=== PATIENT | female | born 1995 | race Caucasian/White ===

== ENCOUNTER 2018-10-30 16:33 | Emergency (ER) | payer OTHER ==
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
[2018-10-30 17:58] LABS: ABSOLUTE BASOPHILS # (AUTO) 0.1 10^3/uL (0.0-0.2); ABSOLUTE EOSINOPHILS # (AUTO) 0.1 10^3/uL (0.0-0.6); ABSOLUTE LYMPHOCYTES (AUTO) 1.8 10^3/uL (0.5-4.7); ABSOLUTE MONOCYTES (AUTO) 0.5 10^3/uL (0.1-1.4); BASOPHILS % (AUTO) 0.8 % (0-2); EOSINOPHILS % (AUTO) 1.2 % (0-6); HEMATOCRIT 44.1 % (36.0-47.0); HEMOGLOBIN 15.2 g/dL (12.0-15.5); MEAN CORPUSCULAR HEMOGLOBIN 30.3 pg (27.0-33.4); MEAN CORPUSCULAR HGB CONC 34.4 g/dL (32.0-36.0); MEAN CORPUSCULAR VOLUME 88 fl (80-97); MONOCYTES % (AUTO) 5.1 % (3-13); PLATELET COUNT 295 10^3/uL (150-450); RED CELL DISTRIBUTION WIDTH 12.8 % (11.5-14.0); SEGMENTED NEUTROPHILS % (AUTO) 73.9 % (42-78); TOTAL CELLS COUNTED % (AUTO) 100 %; WHITE BLOOD COUNT 9.4 10^3/uL (4.0-10.5)
[2018-10-30 18:17] LABS: ALBUMIN 4.6 g/dL (3.5-5.0); ALKALINE PHOSPHATASE 73 U/L (38-126); ANION GAP 11 (5-19); ASPARTATE AMINO TRANSFERASE 16 U/L (14-36); BILIRUBIN,DIRECT 0.1 mg/dL (0.0-0.4); BILIRUBIN,TOTAL 0.4 mg/dL (0.2-1.3); BLOOD UREA NITROGEN 7 mg/dL (7-20); CALCIUM 9.8 mg/dL (8.4-10.2); CARBON DIOXIDE 25 mmol/L (22-30); CHLORIDE 105 mmol/L (98-107); GLUCOSE 97 mg/dL (75-110); TOTAL PROTEIN 7.5 g/dL (6.3-8.2)
[2018-10-30] MEDS ORDERED: FENTANYL CITRATE INJ/PF 100 MCG/2 ML AMPUL IV ONE (18:48)
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
[2018-10-30 19:51] LABS: APPEARANCE,URINE SLIGHTLY-CLOUDY; BILIRUBIN,URINE NEGATIVE (NEGATIVE); COLOR,URINE YELLOW; GLUCOSE, URINE NEGATIVE (NEGATIVE); KETONES,URINE NEGATIVE (NEGATIVE); LEUKOCYTE ESTERASE,URINE NEGATIVE (NEGATIVE); NITRITE,URINE NEGATIVE (NEGATIVE); PROTEIN,URINE NEGATIVE (NEGATIVE); URINE SPECIFIC GRAVITY 1.019; UROBILINOGEN,URINE NEGATIVE mg/dL (<2.0)
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
[2018-10-30] MEDS ORDERED: HYDROCODONE/ACETAMINOPHEN 5-325 MG (6 TAB/ER DISP) PO PRN (22:52)
[2018-10-30 23:01] VITALS: BP 127/91
== END 2018-10-30 23:03 | disposition home or self-care (01) ==
LOC: ER 16:33
DX: S39.91XA Unspecified injury of abdomen, initial encounter (principal); R10.30 Lower abdominal pain, unspecified; W50.0XXA Accidental hit or strike by another person, initial encounter; K62.5 Hemorrhage of anus and rectum; F17.200 Nicotine dependence, unspecified, uncomplicated; Z88.1 Allergy status to other antibiotic agents; Z88.2 Allergy status to sulfonamides; Z88.7 Allergy status to serum and vaccine; Z88.5 Allergy status to narcotic agent; Z91.040 Latex allergy status
CPT/HCPCS: 99284; 36415; 84703; 85025; 81025; 80053; 81001; 74177; J3010

== ENCOUNTER 2019-01-28 20:58 | Emergency (ER) | payer SELFPAY ==
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
[2019-01-28 22:09] LABS: ABSOLUTE EOSINOPHILS # (AUTO) 0.1 10^3/uL (0.0-0.6); ABSOLUTE LYMPHOCYTES (AUTO) 2.4 10^3/uL (0.5-4.7); ABSOLUTE MONOCYTES (AUTO) 0.7 10^3/uL (0.1-1.4); ABSOLUTE NEUT (AUTO) 4.9 10^3/uL (1.7-8.2); BASOPHILS % (AUTO) 0.2 % (0-2); EOSINOPHILS % (AUTO) 1.4 % (0-6); HEMATOCRIT 39.5 % (36.0-47.0); HEMOGLOBIN 13.8 g/dL (12.0-15.5); LYMPHOCYTES % (AUTO) 29.4 % (13-45); MEAN CORPUSCULAR HEMOGLOBIN 31.4 pg (27.0-33.4); MEAN CORPUSCULAR VOLUME 90 fl (80-97); MONOCYTES % (AUTO) 8.3 % (3-13); PLATELET COUNT 276 10^3/uL (150-450); RED BLOOD COUNT 4.41 10^6/uL (3.72-5.28); RED CELL DISTRIBUTION WIDTH 13.2 % (11.5-14.0); SEGMENTED NEUTROPHILS % (AUTO) 60.7 % (42-78); TOTAL CELLS COUNTED % (AUTO) 100 %
[2019-01-28 22:29] LABS: ALBUMIN 4.5 g/dL (3.5-5.0); ALKALINE PHOSPHATASE 51 U/L (38-126); ANION GAP 10 (5-19); ASPARTATE AMINO TRANSFERASE 15 U/L (14-36); BILIRUBIN,DIRECT 0.2 mg/dL (0.0-0.4); BILIRUBIN,TOTAL 0.3 mg/dL (0.2-1.3); BLOOD UREA NITROGEN 9 mg/dL (7-20); CALCIUM 9.6 mg/dL (8.4-10.2); CARBON DIOXIDE 24 mmol/L (22-30); CHLORIDE 106 mmol/L (98-107); GLUCOSE 89 mg/dL (75-110); POTASSIUM 4.4 mmol/L (3.6-5.0); TOTAL PROTEIN 7.3 g/dL (6.3-8.2)
[2019-01-28 22:54] LABS: APPEARANCE,URINE CLEAR; BILIRUBIN,URINE NEGATIVE (NEGATIVE); COLOR,URINE YELLOW; GLUCOSE, URINE NEGATIVE (NEGATIVE); KETONES,URINE NEGATIVE (NEGATIVE); LEUKOCYTE ESTERASE,URINE NEGATIVE (NEGATIVE); NITRITE,URINE NEGATIVE (NEGATIVE); PROTEIN,URINE NEGATIVE (NEGATIVE); URINE SPECIFIC GRAVITY 1.018
[2019-01-28] MEDS ORDERED: ONDANSETRON 4 MG TAB.RAPDIS PO ONE (23:35)
[2019-01-28] MEDS ORDERED: ACETAMINOPHEN 325 MG TABLET PO ONE (23:35)
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
[2019-01-29 01:13] VITALS: BP 98/78
== END 2019-01-29 01:16 | disposition home or self-care (01) ==
LOC: ER 20:58
DX: O9A.211 Injury, poisoning and certain other consequences of external causes complicating pregnancy, first trimester (principal); S39.91XA Unspecified injury of abdomen, initial encounter; O26.891 Other specified pregnancy related conditions, first trimester; R10.30 Lower abdominal pain, unspecified; R11.0 Nausea; O99.331 Smoking (tobacco) complicating pregnancy, first trimester; Z3A.01 Less than 8 weeks gestation of pregnancy; X58.XXXA Exposure to other specified factors, initial encounter
CPT/HCPCS: 99284; 86900; 86901; 36415; 84702; 85025; 80053; 81001; 76817; S0119

== ENCOUNTER 2019-02-17 17:47 | Emergency (ER) | payer MEDICAID ==
[2019-02-17] MEDS ORDERED: METOCLOPRAMIDE HCL 10 MG TABLET PO ONE (18:18)
[2019-02-17] MEDS ORDERED: NORMAL SALINE 1000 ML 1,000 ML IV ONE (18:18)
--- NOTE | 2019-02-17 18:18 | ER Document Report ---
ED Medical Screen (RME) - General Chief Complaint: Vag Bleeding, +preg <12wks Stated Complaint: VAGINAL BLEEDING,VOMITING Time Seen by Provider: 02/17/19 18:16 TRAVEL OUTSIDE OF THE [place] IN LAST 30 DAYS: No - HPI Notes: 02/17/19 18:17 Patient is a 23-year-old female approximately 8 weeks who presents complaining of vaginal bleeding that began today. She has been having nausea, vomiting, decreased p.o. intake over the past couple days. She is urinating normally otherwise and having normal bowel movements. No fever. I have treated and performed a rapid initial assessment of this patient. A comprehensive ED assessment and evaluation of the patient, analysis of test results and completion of medical decision making process will be conducted by additional ED providers. PHYSICAL EXAMINATION: GENERAL: Well-appearing, well-nourished and in no acute distress. A&Ox4. Answers questions appropriately. - Related Data Allergies/Adverse Reactions: erythromycin base Allergy (Verified 02/17/19 18:10) latex [Latex] Allergy (Verified 02/17/19 18:10) morphine [Morphine] Allergy (Verified 02/17/19 18:10) pertussis vaccine,fluid [Pertussis Vaccine,Fluid] Allergy (Verified 02/17/19 18:10) Sulfa (Sulfonamide Antibiotics) Allergy (Verified 02/17/19 18:10) Past Medical History - Social History Frequency of alcohol use: None Drug Abuse: None GI Medical History: Reports: Hx Gastroesophageal Reflux Disease, Hx Hiatal Rosemarie ia Psychiatric Medical History: Reports: Hx Anxiety, Hx Attention Deficit Hyperactivity Disorder, Hx Depression Past Surgical History: Reports: Hx Abdominal Surgery - laprascopy, Hx Bowel Surgery - colonoscopy, Hx Dilation and Curettage, Hx Gynecologic Surgery - d&c - Immunizations Immunizations up to date: Yes Hx Diphtheria, Pertussis, Tetanus Vaccination: Yes Physical Exam - Vital signs Vitals: Temp Pulse Resp BP Pulse Ox 98.2 F 99 16 132/86 H 100 02/17/19 18:02 02/17/19 18:02 02/17/19 18:02 02/17/19 18:02 02/17/19 18:02 Course - Vital Signs Vital signs: Temp Pulse Resp BP Pulse Ox 98.2 F 99 16 132/86 H 100 02/17/19 18:02 02/17/19 18:02 02/17/19 18:02 02/17/19 18:02 02/17/19 18:02
[2019-02-17 18:47] LABS: ABSOLUTE BASOPHILS # (AUTO) 0.1 10^3/uL (0.0-0.2); ABSOLUTE EOSINOPHILS # (AUTO) 0.1 10^3/uL (0.0-0.6); ABSOLUTE LYMPHOCYTES (AUTO) 1.7 10^3/uL (0.5-4.7); ABSOLUTE MONOCYTES (AUTO) 0.5 10^3/uL (0.1-1.4); ABSOLUTE NEUT (AUTO) 5.4 10^3/uL (1.7-8.2); BASOPHILS % (AUTO) 0.7 % (0-2); HEMATOCRIT 40.6 % (36.0-47.0); HEMOGLOBIN 14.3 g/dL (12.0-15.5); LYMPHOCYTES % (AUTO) 21.8 % (13-45); MEAN CORPUSCULAR HEMOGLOBIN 31.4 pg (27.0-33.4); MEAN CORPUSCULAR HGB CONC 35.1 g/dL (32.0-36.0); MEAN CORPUSCULAR VOLUME 90 fl (80-97); MONOCYTES % (AUTO) 6.6 % (3-13); PLATELET COUNT 275 10^3/uL (150-450); RED BLOOD COUNT 4.53 10^6/uL (3.72-5.28); RED CELL DISTRIBUTION WIDTH 12.9 % (11.5-14.0); SEGMENTED NEUTROPHILS % (AUTO) 69.9 % (42-78); TOTAL CELLS COUNTED % (AUTO) 100 %; WHITE BLOOD COUNT 7.7 10^3/uL (4.0-10.5)
[2019-02-17 18:49] LABS: APPEARANCE,URINE SLIGHTLY-CLOUDY; BILIRUBIN,URINE NEGATIVE (NEGATIVE); COLOR,URINE AMBER; GLUCOSE, URINE NEGATIVE (NEGATIVE); KETONES,URINE NEGATIVE (NEGATIVE); PROTEIN,URINE NEGATIVE (NEGATIVE); URINE SPECIFIC GRAVITY 1.018
[2019-02-17 19:06] LABS: ALBUMIN 4.6 g/dL (3.5-5.0); ALKALINE PHOSPHATASE 57 U/L (38-126); ANION GAP 10 (5-19); ASPARTATE AMINO TRANSFERASE 16 U/L (14-36); BILIRUBIN,DIRECT 0.2 mg/dL (0.0-0.4); BILIRUBIN,TOTAL 0.6 mg/dL (0.2-1.3); BLOOD UREA NITROGEN 8 mg/dL (7-20); CALCIUM 9.6 mg/dL (8.4-10.2); CARBON DIOXIDE 24 mmol/L (22-30); CHLORIDE 103 mmol/L (98-107); GLUCOSE 92 mg/dL (75-110); POTASSIUM 4.1 mmol/L (3.6-5.0); TOTAL PROTEIN 7.6 g/dL (6.3-8.2)
--- NOTE | 2019-02-17 19:18 | RADIOLOGY REPORT (SQ) ---
EXAM DESCRIPTION: U/S OB TRANSVAG W/DOPPLER COMPLETED DATE/TIME: 02/17/2019 6:55 pm REASON FOR STUDY: bleeding/ COMPARISON: None. TECHNIQUE: Transvaginal static and realtime grayscale images acquired of the pelvis. Additional colton cted spectral and color Doppler images recorded. All images stored on PACs. bHCG: Not available. CLINICAL DATES: LMP 12/19/2018. 8 weeks 4 days LIMITATIONS: None. FINDINGS: FETUS: Single Living intrauterine . ULTRASOUND EGA: 8 weeks 2 days ULTRASOUND RICHARD: 09/27/2019 EFW: Not applicable less than 20 weeks. CRL: 1.8 cm. FHR: 169 beats per minute. SURVEY: Too early to assess. AMNIOTIC FLUID: Adequate amount. PLACENTA: Not yet developed due to early gestation. SUBCHORIONIC BLEED: Yes SIZE OF BLEED: 2 x 1.4 x 1.1 cm UTERUS: No masses. No anomalies. CERVICAL LENGTH: 2.5 cm Closed. RIGHT ADNEXA: Normal ovary with normal vascular flow. 3.4 x 3.7 x 2.2 cm No adnexal free fluid. No adnexal masses. LEFT ADNEXA: Ovary not seen. No adnexal free fluid. No adnexal masses. FREE FLUID: None. OTHER: No other significant finding. IMPRESSION: LIVING INTRAUTERINE . EGA 8 weeks 2 days. Trimester of : First trimester - 0 to 13 weeks. TECHNICAL DOCUMENTATION: JOB ID: [id number] [employer]- All Rights Reserved rev Reading location - IP/workstation name: [email or web address]
--- NOTE | 2019-02-17 21:00 | ER Document Report ---
ED GI/ - General Chief Complaint: Vag Bleeding, +preg <12wks Stated Complaint: VAGINAL BLEEDING,VOMITING Time Seen by Provider: 02/17/19 18:16 Notes: Patient is a 23-year-old female that comes emergency department for chief complaint of vaginal bleeding that started tonight. She is at about 8 weeks gestation. She denies trauma, fever, vaginal discharge, dysuria. She states she has a lot of nausea and has been vomiting at home, she vomited 4 times today. She has had previous molar pregnancies but she did have a confirmed intrauterine recently. She was given nausea medication in triage, states her nausea is resolved and she feels very hungry, asking to eat. TRAVEL OUTSIDE OF THE [place] IN LAST 30 DAYS: No - Related Data Allergies/Adverse Reactions: erythromycin base Allergy (Verified 02/17/19 18:10) latex [Latex] Allergy (Verified 02/17/19 18:10) morphine [Morphine] Allergy (Verified 02/17/19 18:10) pertussis vaccine,fluid [Pertussis Vaccine,Fluid] Allergy (Verified 02/17/19 18:10) Sulfa (Sulfonamide Antibiotics) Allergy (Verified 02/17/19 18:10) Past Medical History - General Information source: Patient Last Menstrual Period: 12/19/18 - Social History Smoking Status: Never Smoker Frequency of alcohol use: None Drug Abuse: None Lives with: Family Family History: Reviewed & Not Pertinent Patient has suicidal ideation: No Patient has homicidal ideation: No GI Medical History: Reports: Hx Gastroesophageal Reflux Disease, Hx Hiatal Hernia Psychiatric Medical History: Reports: Hx Anxiety, Hx Attention Deficit Hyperactivity Disorder, Hx Depression Past Surgical History: Reports: Hx Abdominal Surgery - laprascopy, Hx Bowel Surgery - colonoscopy, Hx Dilation and Curettage, Hx Gynecologic Surgery - d&c - Immunizations Immunizations up to date: Yes Hx Diphtheria, Pertussis, Tetanus Vaccination: Yes Review of Systems - Review of Systems Constitutional: No symptoms reported EENT: No symptoms reported Cardiovascular: No symptoms reported Respiratory: No symptoms reported Gastrointestinal: See HPI Genitourinary: No symptoms reported Female Genitourinary: See HPI Musculoskeletal: No symptoms reported Skin: No symptoms reported Hematologic/Lymphatic: No symptoms reported Neurological/Psychological: No symptoms reported Physical Exam - Vital signs Vitals: Temp Pulse Resp BP Pulse Ox 98.2 F 99 16 132/86 H 100 02/17/19 18:02 02/17/19 18:02 02/17/19 18:02 02/17/19 18:02 02/17/19 18:02 - Notes Notes: GENERAL: Alert, interacts well. No acute distress. HEAD: Normocephalic, atraumatic. EYES: Pupils equal, round, and reactive to light. Extraocular movements intact. ENT: Oral mucosa moist, tongue midline. Oropharynx unremarkable. Airway patent. LUNGS: Clear to auscultation bilaterally, no wheezes, rales, or rhonchi. No respiratory distress. HEART: Regular rate and rhythm. No murmur ABDOMEN: Soft, non-tender. Non-distended. Bowel sounds present in all 4 quadrants. GENITOURINARY: Deferred EXTREMITIES: Moves all 4 extremities spontaneously. No edema, normal radial and dorsalis pedis pulses bilaterally. No cyanosis. BACK: no cervical, thoracic, lumbar midline tenderness. No saddle anesthesia, normal distal neurovascular exam. Moves all extremities in full range of motion. NEUROLOGICAL: Alert and oriented x3. Normal speech. Cranial nerves II through XII grossly intact. PSYCH: Normal affect, normal mood. SKIN: Warm, dry, normal turgor. No rashes or lesions noted. Course - Re-evaluation Re-evalutation: Patient smiling, alert, well-appearing. Unremarkable vital signs. I just saw this patient, RhoGam is not indicated with A positive blood type. CBC unremarkable. hormone appropriately elevated. Ultrasound showing living intrauterine with small subchorionic hemorrhage which I suspect is the cause of patient's symptoms. I discussed this at length. Provided with nausea medication, report, instructions, follow-up, return precautions. Patient states appreciation and agreement, asymptomatic at time of discharge. - Vital Signs Vital signs: Temp Pulse Resp BP Pulse Ox 98.1 F 67 16 112/66 100 02/17/19 22:36 02/17/19 22:36 02/17/19 22:36 02/17/19 22:36 02/17/19 22:36 - Laboratory Result Diagrams: 02/17/19 18:15 02/17/19 18:15 Laboratory results interpreted by me: 02/17/19 02/17/19 18:15 18:17 Beta HCG, Quant 468228.00 H Urine Blood MODERATE H Urine Urobilinogen 4.0 H Discharge - Discharge Clinical Impression: Nausea and vomiting during , Vaginal bleeding affecting early Condition: Stable Disposition: HOME, SELF-CARE Additional Instructions: Your work-up indicates a living in the uterus at 8 weeks and 2 days, there is also a small subchorionic bleed as we discussed. Please perform pelvic rest, avoid lifting, jumping, running, sexual intercourse, or any significant physical activity until cleared by [facility]. Follow-up closely with [facility] for additional management. Take nausea medication if needed. Return for any concerning symptoms including severe pain, heavy bleeding, dizziness, passing out, fever, or any other concerning symptoms. Prescriptions: Metoclopramide HCl [Reglan] 5 mg PO ASDIR PRN #30 tablet PRN Reason:
[2019-02-17 22:40] VITALS: BP 114/84
== END 2019-02-17 22:40 | disposition home or self-care (01) ==
LOC: ER 17:47
DX: O20.8 Other hemorrhage in early pregnancy (principal); O21.9 Vomiting of pregnancy, unspecified; Z3A.08 8 weeks gestation of pregnancy; Z88.1 Allergy status to other antibiotic agents; Z88.6 Allergy status to analgesic agent; Z88.5 Allergy status to narcotic agent; Z88.7 Allergy status to serum and vaccine; Z88.2 Allergy status to sulfonamides; Z91.040 Latex allergy status
CPT/HCPCS: 99284; 96360; 36415; 84702; 83690; 85025; 80053; 81001; 76817; 93976; J3490; J7030

== ENCOUNTER 2019-03-15 15:11 | Emergency (ER) | payer MEDICAID ==
--- NOTE | 2019-03-15 16:02 | ER Document Report ---
ED Medical Screen (RME) - General Chief Complaint: Vaginal Bleeding Stated Complaint: VAGINAL BLEEDING Time Seen by Provider: 03/15/19 15:59 Mode of Arrival: Ambulatory Information source: Patient Notes: 23-year-old female presented to ED for complaint of vaginal bleeding during . She states she is about 12 weeks . She is 3 para 1. Her blood type is a positive according to the hospital records. She states she has complete continued to bleed so she has come to the hospital. She states she does have pelvic pain at this time. Patient is alert oriented respirations regular nonlabored speaking in full sentences. I have greeted and performed a rapid initial assessment of this patient. A comprehensive ED assessment and evaluation of the patient, analysis of test results and completion of medical decision making process will be conducted by an additional ED providers. TRAVEL OUTSIDE OF THE [place] IN LAST 30 DAYS: No - Related Data Allergies/Adverse Reactions: erythromycin base Allergy (Verified 03/15/19 16:01) latex [Latex] Allergy (Verified 03/15/19 16:01) morphine [Morphine] Allergy (Verified 03/15/19 16:01) pertussis vaccine,fluid [Pertussis Vaccine,Fluid] Allergy (Verified 03/15/19 16:01) Sulfa (Sulfonamide Antibiotics) Allergy (Verified 03/15/19 16:01) Past Medical History GI Medical History: Reports: Hx Gastroesophageal Reflux Disease, Hx Hiatal Hernia Psychiatric Medical History: Reports: Hx Anxiety, Hx Attention Deficit Hyperactivity Disorder, Hx Depression Past Surgical History: Reports: Hx Abdominal Surgery - laprascopy, Hx Bowel Surgery - colonoscopy, Hx Dilation and Curettage, Hx Gynecologic Surgery - d&c - Immunizations Immunizations up to date: Yes Hx Diphtheria, Pertussis, Tetanus Vaccination: Yes Physical Exam - Vital signs Vitals: Temp Pulse Resp BP Pulse Ox 98.8 F 94 15 137/71 H 98 03/15/19 15:53 03/15/19 15:53 03/15/19 15:53 03/15/19 15:53 03/15/19 15:53 Course - Vital Signs Vital signs: Temp Pulse Resp BP Pulse Ox 98.8 F 94 15 137/71 H 98 03/15/19 15:53 03/15/19 15:53 03/15/19 15:53 03/15/19 15:53 03/15/19 15:53
[2019-03-15] MEDS ORDERED: ACETAMINOPHEN 325 MG TABLET PO ONE (16:04)
[2019-03-15 17:34] LABS: ABSOLUTE EOSINOPHILS # (AUTO) 0.1 10^3/uL (0.0-0.6); ABSOLUTE LYMPHOCYTES (AUTO) 1.2 10^3/uL (0.5-4.7); ABSOLUTE MONOCYTES (AUTO) 0.4 10^3/uL (0.1-1.4); BASOPHILS % (AUTO) 0.2 % (0-2); EOSINOPHILS % (AUTO) 0.9 % (0-6); HEMATOCRIT 38.4 % (36.0-47.0); HEMOGLOBIN 13.5 g/dL (12.0-15.5); LYMPHOCYTES % (AUTO) 15.8 % (13-45); MEAN CORPUSCULAR HEMOGLOBIN 31.5 pg (27.0-33.4); MEAN CORPUSCULAR HGB CONC 35.1 g/dL (32.0-36.0); MEAN CORPUSCULAR VOLUME 90 fl (80-97); MONOCYTES % (AUTO) 4.8 % (3-13); PLATELET COUNT 226 10^3/uL (150-450); RED BLOOD COUNT 4.28 10^6/uL (3.72-5.28); RED CELL DISTRIBUTION WIDTH 12.7 % (11.5-14.0); SEGMENTED NEUTROPHILS % (AUTO) 78.3 % (42-78); TOTAL CELLS COUNTED % (AUTO) 100 %; WHITE BLOOD COUNT 7.7 10^3/uL (4.0-10.5)
[2019-03-15 17:58] LABS: ALBUMIN 3.9 g/dL (3.5-5.0); ALKALINE PHOSPHATASE 46 U/L (38-126); ANION GAP 8 (5-19); ASPARTATE AMINO TRANSFERASE 11 U/L (14-36); BILIRUBIN,TOTAL 0.3 mg/dL (0.2-1.3); BLOOD UREA NITROGEN 7 mg/dL (7-20); CALCIUM 9.4 mg/dL (8.4-10.2); CARBON DIOXIDE 25 mmol/L (22-30); CHLORIDE 105 mmol/L (98-107); GLUCOSE 92 mg/dL (75-110); POTASSIUM 4.5 mmol/L (3.6-5.0); TOTAL PROTEIN 6.6 g/dL (6.3-8.2)
[2019-03-15] MEDS ORDERED: NORMAL SALINE 1000 ML 1,000 ML IV ONE (19:35)
[2019-03-15] MEDS ORDERED: PROMETHAZINE HCL INJ 25 MG/1 ML VIAL IV ONE (19:36)
--- NOTE | 2019-03-15 21:01 | RADIOLOGY REPORT (SQ) ---
EXAM DESCRIPTION: US LESS THAN 14 WEEKS COMPLETED DATE/TME: 03/15/2019 16:03 CLINICAL HISTORY: 23 years Female 12 weeks vaginal bleeding COMPARISON: None. TECHNIQUE: Transabdominal duplex imaging performed to evaluate the pelvis. FINDINGS: Uterus measures 10 x 8 cm. There is an intrauterine gestational sac. Right ovary measures 2.3 x 2.5 x 2.5 cm with normal flow. heart rate 153 bpm. Cervix measures 3 cm. Left ovary is not seen. No free fluid. Subjectively normal ROBERTO. Estimated gestational age 12 weeks two days. IMPRESSION: Living IUP corresponding to 12 weeks two days
[2019-03-15] MEDS ORDERED: DEXTROSE 5%-1/2 NORMAL SALINE 500 ML IV ONE (21:44)
[2019-03-15 22:13] LABS: APPEARANCE,URINE CLEAR; BILIRUBIN,URINE NEGATIVE (NEGATIVE); COLOR,URINE COLORLESS; GLUCOSE, URINE NEGATIVE (NEGATIVE); KETONES,URINE NEGATIVE (NEGATIVE); LEUKOCYTE ESTERASE,URINE NEGATIVE (NEGATIVE); NITRITE,URINE NEGATIVE (NEGATIVE); PROTEIN,URINE NEGATIVE (NEGATIVE); URINE SPECIFIC GRAVITY 1.003; UROBILINOGEN,URINE NEGATIVE mg/dL (<2.0)
--- NOTE | 2019-03-15 22:41 | ER Document Report ---
ED GI/ - General Chief Complaint: Vaginal Bleeding Stated Complaint: VAGINAL BLEEDING Time Seen by Provider: 03/15/19 15:59 Mode of Arrival: Ambulatory Notes: Patient is a 23-year-old female about 12 weeks who comes in today with some cramping and spotting. Patient states last intercourse was 3 to 4 days a go. Denies any vaginal discharge. No dysuria. No fever. Patient has been nauseated during this and apparently has been under a lot of stress this week. She is been trying to eat but states that her fluid intake was probably lower than usual. No other abdominal pain or symptoms. TRAVEL OUTSIDE OF THE [place] IN LAST 30 DAYS: No - HPI Patient complains to provider of: Onset: Other Timing/Duration: Gradual Quality of pain: Cramping, Dull Severity at maximum: Mild Severity in ED: Mild Location: Pelvis Vaginal bleeding (Compared to normal period): Spotting heart tones (bpm): 136 Associated symptoms: Nausea - Related Data Allergies/Adverse Reactions: erythromycin base Allergy (Verified 03/15/19 16:01) latex [Latex] Allergy (Verified 03/15/19 16:01) morphine [Morphine] Allergy (Verified 03/15/19 16:01) pertussis vaccine,fluid [Pertussis Vaccine,Fluid] Allergy (Verified 03/15/19 16:01) Sulfa (Sulfonamide Antibiotics) Allergy (Verified 03/15/19 16:01) Past Medical History - General Information source: Patient Last Menstrual Period: 12/19/2018 - Social History Smoking Status: Current Every Day Smoker Frequency of alcohol use: None Drug Abuse: None Family History: Reviewed & Not Pertinent Patient has suicidal ideation: No Patient has homicidal ideation: No - Medical History Medical History: Negative GI Medical History: Reports: Hx Gastroesophageal Reflux Disease, Hx Hiatal Hernia Psychiatric Medical History: Reports: Hx Anxiety, Hx Attention Deficit Hyperactivity Disorder, Hx Depression Past Surgical History: Reports: Hx Abdominal Surgery - laprascopy, Hx Bowel Surgery - colonoscopy, Hx Dilation and Curettage, Hx Gynecologic Surgery - d&c - Immunizations Immunizations up to date: Yes Hx Diphtheria, Pertussis, Tetanus Vaccination: Yes Review of Systems - Review of Systems Constitutional: No symptoms reported EENT: No symptoms reported Cardiovascular: No symptoms reported Respiratory: No symptoms reported Gastrointestinal: No symptoms reported Genitourinary: No symptoms reported Female Genitourinary: See HPI Musculoskeletal: No symptoms reported Skin: No symptoms reported Hematologic/Lymphatic: No symptoms reported Neurological/Psychological: No symptoms reported Physical Exam - Vital signs Vitals: Temp Pulse Resp BP Pulse Ox 98.8 F 94 15 137/71 H 98 03/15/19 15:53 03/15/19 15:53 03/15/19 15:53 03/15/19 15:53 03/15/19 15:53 Interpretation: Normal - General General appearance: Appears well, Alert - HEENT Head: Normocephalic, Atraumatic Eyes: Normal Pupils: PERRL Mucous membranes: Dry - Respiratory Respiratory status: No respiratory distress Chest status: Nontender Breath sounds: Normal Chest palpation: Normal - Cardiovascular Rhythm: Regular Heart sounds: Normal auscultation Murmur: No - Abdominal Inspection: Normal Distension: No distension Bowel sounds: Normal Tenderness: Tender - Mild suprapubic Organomegaly: No organomegaly - Back Back: Normal, Nontender - Extremities General upper extremity: Normal inspection, Nontender, Normal color, Normal ROM, Normal temperature General lower extremity: Normal inspection, Nontender, Normal color, Normal ROM, Normal temperature, Normal weight bearing. No: Katrin's sign - Neurological Neuro grossly intact: Yes Cognition: Normal Orientation: AAOx4 Salazar Coma Scale Eye Opening: Spontaneous [place]azar Coma Scale Verbal: Oriented [place] Coma Scale Motor: Obeys Commands Salazar Coma Scale Total: 15 Speech: Normal Motor strength normal: LUE, RUE, LLE, RLE Sensory: Normal - Psychological Associated symptoms: Normal affect, Normal mood - Skin Skin Temperature: Warm Skin Moisture: Dry Skin Color: Normal Course - Re-evaluation Re-evalutation: 03/15/19 23:33 Patient is feeling better after fluids and Phenergan. Ultrasound with intrauterine at 12 weeks. heartbeat 153. Symptoms are resolving now that patient is received fluids. Likely as a result of some dehydration. Will refill of Phenergan. Patient is encouraged to follow-up with her STAFFING ANALYST this week. Return if any worsening or concerning symptoms. Understands agrees with plan. Stable for discharge. Of note, blood type is A positive. - Vital Signs Vital signs: Temp Pulse Resp BP Pulse Ox 98.4 F 80 20 112/62 99 03/15/19 23:19 03/15/19 23:19 03/15/19 23:19 03/15/19 23:19 03/15/19 23:19 - Laboratory Result Diagrams: 03/15/19 16:50 03/15/19 16:50 Laboratory results interpreted by me: 03/15/19 03/15/19 16:50 16:50 Seg Neutrophils % 78.3 H AST 11 L Beta HCG, Quant [id number] H - Diagnostic Test Radiology reviewed: Reports reviewed Discharge - Discharge Clinical Impression: Pelvic cramping in antepartum period, Nausea and vomiting during Condition: Stable Disposition: HOME, SELF-CARE Instructions: Bleeding During Early ([facility]), Pelvic Pain in ([facility]) Prescriptions: Promethazine HCl [Phenergan 25 mg Tablet] 1 tab PO Q6H PRN #30 tablet PRN Reason:
[2019-03-15 23:21] VITALS: BP 112/62
== END 2019-03-15 23:41 | disposition home or self-care (01) ==
LOC: ER 15:11
DX: O26.891 Other specified pregnancy related conditions, first trimester (principal); R10.2 Pelvic and perineal pain; O21.9 Vomiting of pregnancy, unspecified; O26.851 Spotting complicating pregnancy, first trimester; O99.331 Smoking (tobacco) complicating pregnancy, first trimester; F17.200 Nicotine dependence, unspecified, uncomplicated; Z3A.12 12 weeks gestation of pregnancy; Z88.1 Allergy status to other antibiotic agents; Z91.040 Latex allergy status; Z88.6 Allergy status to analgesic agent; Z88.5 Allergy status to narcotic agent; Z88.7 Allergy status to serum and vaccine; Z88.2 Allergy status to sulfonamides
CPT/HCPCS: 36415; 82962; 84702; 85025; 80053; 81001; 76801; J3490; J2550; J7030; 96361; 96365; 96375; 99284

== ENCOUNTER 2019-04-03 12:15 | Emergency (ER) | payer MEDICAID ==
[2019-04-03] MEDS ORDERED: METOCLOPRAMIDE HCL INJ/PF 10 MG/2 ML SDV IV ONE ×2 (13:13→17:30)
[2019-04-03] MEDS ORDERED: ACETAMINOPHEN 325 MG TABLET PO ONE ×2 (13:14→17:30)
[2019-04-03] MEDS ORDERED: NORMAL SALINE 1000 ML 1,000 ML IV ONE ×2 (13:14→17:30)
--- NOTE | 2019-04-03 13:16 | ER Document Report ---
ED Medical Screen (RME) - General Chief Complaint: Back Pain Stated Complaint: LOWER BACK PAIN Time Seen by Provider: 04/03/19 13:09 Notes: Patient is a G3, P1 23-year-old female who presents emergency department with a chief complaint of back pain. Patient states that she has some nausea and vomiting. She was taking Diclegis at home, but has not kept anything down for the past 2 days. States that she has some abdominal cramping. Patient is currently 15 weeks . Exam: Tenderness to mid lower abdomen. Tenderness to bilateral back. I have greeted and performed a rapid initial assessment of this patient. A comprehensive ED assessment and evaluation of the patient, analysis of test results and completion of medical decision making process will be conducted by an additional ED providers. TRAVEL OUTSIDE OF THE [place] IN LAST 30 DAYS: No - Related Data Allergies/Adverse Reactions: erythromycin base Allergy (Verified 04/03/19 13:06) latex [Latex] Allergy (Verified 04/03/19 13:06) morphine [Morphine] Allergy (Verified 04/03/19 13:06) pertussis vaccine,fluid [Pertussis Vaccine,Fluid] Allergy (Verified 04/03/19 13:06) Sulfa (Sulfonamide Antibiotics) Allergy (Verified 04/03/19 13:06) Home Medications: prentals Past Medical History - Social History Frequency of alcohol use: None Drug Abuse: None GI Medical History: Reports: Hx Gastroesophageal Reflux Disease, Hx Hiatal Hernia Psychiatric Medical History: Reports: Hx Anxiety, Hx Attention Deficit Hyperactivity Disorder, Hx Depression Past Surgical History: Reports: Hx Abdominal Surgery - laprascopy, Hx Bowel Surgery - colonoscopy, Hx Dilation and Curettage, Hx Gynecologic Surgery - d&c - Immunizations Immunizations up to date: Yes Hx Diphtheria, Pertussis, Tetanus Vaccination: Yes Physical Exam - Vital signs Vitals: Temp Pulse Resp BP Pulse Ox 98.5 F 112 H 21 H 129/71 H 98 04/03/19 12:59 04/03/19 12:59 04/03/19 12:59 04/03/19 12:59 04/03/19 12:59 Course - Vital Signs Vital signs: Temp Pulse Resp BP Pulse Ox 98.5 F 112 H 21 H 129/71 H 98 04/03/19 12:59 04/03/19 12:59 04/03/19 12:59 04/03/19 12:59 04/03/19 12:59
[2019-04-03 13:36] LABS: ABSOLUTE LYMPHOCYTES (AUTO) 0.6 10^3/uL (0.5-4.7); ABSOLUTE MONOCYTES (AUTO) 0.4 10^3/uL (0.1-1.4); ABSOLUTE NEUT (AUTO) 3.1 10^3/uL (1.7-8.2); BASOPHILS % (AUTO) 0.2 % (0-2); HEMATOCRIT 38.1 % (36.0-47.0); HEMOGLOBIN 13.6 g/dL (12.0-15.5); LYMPHOCYTES % (AUTO) 15.5 % (13-45); MEAN CORPUSCULAR HEMOGLOBIN 31.8 pg (27.0-33.4); MEAN CORPUSCULAR HGB CONC 35.8 g/dL (32.0-36.0); MEAN CORPUSCULAR VOLUME 89 fl (80-97); MONOCYTES % (AUTO) 9.6 % (3-13); PLATELET COUNT 203 10^3/uL (150-450); RED BLOOD COUNT 4.29 10^6/uL (3.72-5.28); RED CELL DISTRIBUTION WIDTH 12.7 % (11.5-14.0); SEGMENTED NEUTROPHILS % (AUTO) 74.7 % (42-78); TOTAL CELLS COUNTED % (AUTO) 100 %; WHITE BLOOD COUNT 4.1 10^3/uL (4.0-10.5)
[2019-04-03 13:54] LABS: ALBUMIN 4.3 g/dL (3.5-5.0); ALKALINE PHOSPHATASE 56 U/L (38-126); ANION GAP 10 (5-19); ASPARTATE AMINO TRANSFERASE 20 U/L (14-36); BILIRUBIN,TOTAL 0.5 mg/dL (0.2-1.3); BLOOD UREA NITROGEN 8 mg/dL (7-20); CALCIUM 9.4 mg/dL (8.4-10.2); CARBON DIOXIDE 24 mmol/L (22-30); CHLORIDE 100 mmol/L (98-107); GLUCOSE 90 mg/dL (75-110); POTASSIUM 4.4 mmol/L (3.6-5.0); TOTAL PROTEIN 7.3 g/dL (6.3-8.2)
--- NOTE | 2019-04-03 15:01 | RADIOLOGY REPORT (SQ) ---
EXAM DESCRIPTION: U/S OB LIMITED COMPLETED DATE/TIME: 04/03/2019 2:49 pm REASON FOR STUDY: back pain; pelvic pain COMPARISON: Ultrasound from 03/15/2019. TECHNIQUE: Limited transabdominal grayscale ultrasound for evaluation of specific requested obstetri porfirio parameters. LIMITATIONS: None. FINDINGS: CERVICAL LENGTH: 3.4 cm. Closed. LVP: 5.4 x 2.9 cm. FHR: 152 beats per minute. PRESENTATION: Variable. PLACENTA: Fundal. ANATOMY: Not assessed. OTHER: EGA 15 weeks 1 day. IMPRESSION: LIMITED OBSTETRICAL ULTRASOUND WITH MEASURED PARAMETERS DELINEATED ABOVE. Trimester of : Second trimester - 13 weeks 1 day to 27 weeks 6 days. TECHNICAL DOCUMENTATION: JOB ID: [id number] [email or web address]- All Rights Reserved Reading location - IP/workstation name: [email or web address]
--- NOTE | 2019-04-03 17:57 | ER Document Report ---
ED General - General Chief Complaint: Back Pain Stated Complaint: LOWER BACK PAIN Time Seen by Provider: 04/03/19 13:09 Mode of Arrival: Ambulatory Information source: Patient Notes: 23-year-old female G3, P1 approximately 15 weeks presents emergency department with complaints of lower back pain and bilateral hip pain since yesterday. She also reports she has been having a low-grade fever of 101 with vomiting for the past 2 days. Reports she has been unable to hold any fluids do wn. She did receive her flu vaccine this year. Denies pain with void denies vaginal discharge denies vaginal bleeding. Reports of occasional sharp pains in her abdomen. No other family members ill. Patient is a homemaker. TRAVEL OUTSIDE OF THE [place] IN LAST 30 DAYS: No - HPI Onset: Yesterday Quality of pain: Achy Associated symptoms: Nausea, Vomiting Exacerbated by: Denies Relieved by: Denies Similar symptoms previously: Yes Recently seen / treated by doctor: Yes - Related Data Allergies/Adverse Reactions: erythromycin base Allergy (Verified 04/03/19 13:06) latex [Latex] Allergy (Verified 04/03/19 13:06) morphine [Morphine] Allergy (Verified 04/03/19 13:06) pertussis vaccine,fluid [Pertussis Vaccine,Fluid] Allergy (Verified 04/03/19 13:06) Sulfa (Sulfonamide Antibiotics) Allergy (Verified 04/03/19 13:06) Home Medications: prentals Past Medical History - General Information source: Patient Last Menstrual Period: 12/19/18 - Social History Smoking Status: Unknown if Ever Smoked Frequency of alcohol use: None Drug Abuse: None Occupation: homemaker Lives with: Family Family History: Reviewed & Not Pertinent Patient has suicidal ideation: No Patient has homicidal ideation: No Endocrine Medical History: Reports: Hx Hyperthyroidism - Daisy's Renal/ Medical History: Reports: Other - Endometriosis GI Medical History: Reports: Hx Gastroesophageal Reflux Disease, Hx Hiatal Hernia Musculoskeletal Medical History: Reports Other - Scoliosis Psychiatric Medical History: Reports: Hx Anxiety, Hx Attention Deficit Hyperactivity Disorder, Hx Depression Past Surgical History: Reports: Hx Abdominal Surgery - laprascopy, Hx Bowel Surgery - colonoscopy, Hx Dilation and Curettage, Hx Gynecologic Surgery - d&c - Immunizations Immunizations up to date: Yes Hx Diphtheria, Pertussis, Tetanus Vaccination: Yes Review of Systems - Review of Systems Notes: Review HPI for review of systems., All other systems negative Physical Exam - Vital signs Vitals: Temp Pulse Resp BP Pulse Ox 98.5 F 112 H 21 H 129/71 H 98 04/03/19 12:59 04/03/19 12:59 04/03/19 12:59 04/03/19 12:59 04/03/19 12:59 - Notes Notes: PHYSICAL EXAMINATION: GENERAL: Well-appearing and in no acute distress HEAD: Atraumatic, normocephalic. EYES: Pupils equal round and reactive to light, extraocular movements intact, sclera anicteric, conjunctiva are normal. ENT: nares patent, oropharynx clear without exudates. Moist mucous membranes. NECK: Normal range of motion, supple without lymphadenopathy LUNGS: CTAB and equal. No wheezes rales or rhonchi. HEART: Regular rate and rhythm without murmurs ABDOMEN: Soft, no tenderness. No guarding, no rebound BACK: C/O generalized low back pain, no obvious deformity good distal movement and sensation EXTREMITIES: Normal range of motion, no pitting edema. No cyanosis. NEUROLOGICAL: Cranial nerves grossly intact. Normal sensory/motor exams. PSYCH: Normal mood, normal affect. SKIN: Warm, Dry, normal turgor, no rashes or lesions noted Course - Re-evaluation Re-evalutation: 04/03/19 18:01 Obstetrics Ultrasound 04/03/19 13:17 IMPRESSION: LIMITED OBSTETRICAL ULTRASOUND WITH MEASURED PARAMETERS DELINEATED ABOVE. Trimester of : Second trimester - 13 weeks 1 day to 27 weeks 6 days. 04/03/19 19:43 Patient reports she is feeling much better. No further vomiting. Labs unremarkable. UA with specific gravity 1.031+ ketones receiving IV fluids ultrasound 15 w1d. will do p.o. challenge plan on discharge. 20:06 Patient reports she feels great. Drinking p.o. fluids discharged home Laboratory 04/03/19 04/03/19 04/03/19 13:22 13:22 17:30 WBC 4.1 RBC 4.29 Hgb 13.6 Hct 38.1 MCV 89 MCH 31.8 MCHC 35.8 RDW 12.7 Plt Count 203 Lymph % (Auto) 15.5 [place] % (Auto) 9.6 Eos % (Auto) 0.0 Baso % (Auto) 0.2 Absolute Neuts (auto) 3.1 Absolute Lymphs (auto) 0.6 Absolute Monos (auto) 0.4 Absolute Eos (auto) 0.0 Absolute Basos (auto) 0.0 Seg Neutrophils % 74.7 Sodium 133.7 L Potassium 4.4 Chloride 100 Carbon Dioxide 24 Anion Gap 10 BUN 8 Creatinine 0.64 Est GFR ( Amer) > 60 Est GFR (MDRD) Non-Af > 60 Glucose 90 Calcium 9.4 Total Bilirubin 0.5 Direct Bilirubin 0.0 Neonat Total Bilirubin Not Reportable Neonat Direct Bilirubin Not Reportable Neonat Indirect Bili Not Reportable AST 20 ALT 12 Alkaline Phosphatase 56 Total Protein 7.3 Albumin 4.3 Lipase 48.4 Beta HCG, Quant 36712.00 H Total Beta HCG POSITIVE Urine Color QUITA Urine Appearance SLIGHTLY-CLOUDY Urine pH 5.0 Ur Specific [place] 1.031 Urine Protein 30 H Urine Glucose (UA) NEGATIVE Urine Ketones 80 H Urine Blood NEGATIVE Urine Nitrite NEGATIVE Urine Bilirubin NEGATIVE Urine Urobilinogen NEGATIVE Ur Leukocyte Esterase NEGATIVE Urine WBC (Auto) 4 Urine RBC (Auto) 5 Squamous Epi Cells Auto 7 Urine Mucus (Auto) RARE Urine Ascorbic Acid 40 H 04/03/19 20:06 - Vital Signs Vital signs: Temp Pulse Resp BP Pulse Ox 98.5 F 112 H 21 H 129/71 H 98 04/03/19 12:59 04/03/19 12:59 04/03/19 12:59 04/03/19 12:59 04/03/19 12:59 - Laboratory Result Diagrams: 04/03/19 13:22 04/03/19 13:22 Laboratory results interpreted by me: 04/03/19 04/03/19 13:22 17:30 Sodium 133.7 L Beta HCG, Quant 53152.00 H Urine Protein 30 H Urine Ketones 80 H Urine Ascorbic Acid 40 H - Diagnostic Test Radiology reviewed: Image reviewed, Reports reviewed Discharge - Discharge Clinical Impression: Dehydration Back pain Qualifiers: Back pain location: low back pain Chronicity: unspecified Back pain laterality: bilateral Sciatica presence: without sciatica Qualified Code(s): M54.5 - Low back pain Nausea & vomiting Qualifiers: Vomiting type: unspecified Vomiting Intractability: non-intractable Qualified Code(s): R11.2 - Nausea with vomiting, unspecified Qualifiers: Weeks of gestation: 15 weeks Qualified Code(s): Z3A.15 - 15 weeks gestation of Condition: Stable Disposition: HOME, SELF-CARE Instructions: Antinausea Medication ([facility]), Dehydration ([facility]), Intravenous (IV) Fluids ([facility]), Low Back Pain ([facility]), Reglan ([facility]), Vomiting ([facility]) Additional Instructions: *You have been evaluated for back pain hip pain nausea vomiting, dehydration, pr egnancy *Take medication as prescribed for nausea and vomiting *Take Tylenol as indicated for back pain *Push fluids to stay well-hydrated *Follow up with your ZONE MANAGER within 1 week for recheck *Return to ED for worsening condition, changes, needs monitor your blood pressure. Your blood pressure was elevated today. This may be because you were anxious, in pain or because you need medication. It is important to follow up with your primary care provider for full evaluation. Prescriptions: Metoclopramide HCl [Reglan] 10 mg PO Q6H PRN #20 tablet PRN Reason: Forms: Elevated Blood Pressure
[2019-04-03 19:15] LABS: APPEARANCE,URINE SLIGHTLY-CLOUDY; BILIRUBIN,URINE NEGATIVE (NEGATIVE); COLOR,URINE AMBER; GLUCOSE, URINE NEGATIVE (NEGATIVE); KETONES,URINE 80 mg/dL (NEGATIVE); LEUKOCYTE ESTERASE,URINE NEGATIVE (NEGATIVE); NITRITE,URINE NEGATIVE (NEGATIVE); PROTEIN,URINE 30 mg/dL (NEGATIVE); URINE SPECIFIC GRAVITY 1.031; UROBILINOGEN,URINE NEGATIVE mg/dL (<2.0)
[2019-04-03] MEDS ORDERED: RINGERS SOLUTION,LACTATED 1,000 ML IV ONE (19:36)
[2019-04-03 20:33] VITALS: BP 102/67
== END 2019-04-03 20:21 | disposition home or self-care (01) ==
LOC: ER 12:15
DX: O99.89 Other specified diseases and conditions complicating pregnancy, childbirth and the puerperium (principal); M54.5 Low back pain; E86.0 Dehydration; O21.8 Other vomiting complicating pregnancy; Z3A.15 15 weeks gestation of pregnancy; Z88.3 Allergy status to other anti-infective agents; Z91.040 Latex allergy status; Z88.6 Allergy status to analgesic agent; Z88.2 Allergy status to sulfonamides
CPT/HCPCS: 99284; 96361; 96374; 36415; 84702; 83690; 85025; 80053; 81001; 76815; J3490; J2765; J7030

== ENCOUNTER 2019-07-25 12:09 | Outpatient (CLI) | payer MEDICAID ==
[2019-07-25 13:15] LABS: APPEARANCE,URINE CLEAR; BILIRUBIN,URINE NEGATIVE (NEGATIVE); COLOR,URINE YELLOW; GLUCOSE, URINE NEGATIVE (NEGATIVE); KETONES,URINE NEGATIVE (NEGATIVE); LEUKOCYTE ESTERASE,URINE NEGATIVE (NEGATIVE); NITRITE,URINE NEGATIVE (NEGATIVE); PROTEIN,URINE NEGATIVE (NEGATIVE); UROBILINOGEN,URINE NEGATIVE mg/dL (<2.0)
[2019-07-25 13:15] LABS: BACTERIA (WET MOUNT) 3+ BACTERIA SEEN; EPITHELIALS (WET MOUNT) 4+ EPITHELIALS SEEN; T.VAGINALIS (WET MOUNT) NO TRICHOMONAS SEEN; WBCS (WET MOUNT) 2+ WBCS SEEN; YEAST (WET MOUNT) NO YEAST SEEN
[2019-07-25 13:40] LABS: URINE AMPHETAMINES SCREEN NEGATIVE; URINE BARBITURATES SCREEN NEGATIVE; URINE BENZODIAZEPINES SCREEN NEGATIVE; URINE COCAINE SCREEN NEGATIVE; URINE MARIJUANA (THC) SCREEN NEGATIVE; URINE METHADONE SCREEN NEGATIVE; URINE PHENCYCLIDINE SCREEN NEGATIVE
--- NOTE | 2019-07-25 13:56 | RADIOLOGY REPORT (SQ) ---
EXAM DESCRIPTION: U/S OB LIMITED IMAGES COMPLETED DATE/TIME: 07/25/2019 1:30 pm REASON FOR STUDY: cervical length COMPARISON: None. TECHNIQUE: Limited transabdominal grayscale ultrasound for evaluation of specific requested obstetri porfirio parameters. LIMITATIONS: None. FINDINGS: CERVICAL LENGTH: 3.2 cm Closed. ROBERTO: 16.8 cm cm. FHR: 127 beats per minute. PRESENTATION: Cephalic. PLACENTA: Not assessed ANATOMY: Not assessed OTHER: No other significant findings. IMPRESSION: LIMITED OBSTETRICAL ULTRASOUND WITH MEASURED PARAMETERS DELINEATED ABOVE. Trimester of : Third trimester - 28 weeks to delivery. TECHNICAL DOCUMENTATION: JOB ID: [id number] 2010 [employer]- All Rights Reserved Reading location - IP/workstation name: [email or web address]
[2019-07-25 14:43] LABS: CHLAM PCR NOT DETECTED (NOT DETECT)
== END 2019-07-25 14:05 | disposition home or self-care (01) ==
LOC: LC 12:09
PROVIDERS: ATTEND Student in an Organized Health Care Education/Training Program
DX: O47.03 False labor before 37 completed weeks of gestation, third trimester (principal); Z3A.31 31 weeks gestation of pregnancy
CPT/HCPCS: 87210; 81001; 80307; 87491; 87591; 84112; 76815; 59899; Q0114

== ENCOUNTER 2019-08-18 09:58 | Outpatient (CLI) | payer MEDICAID ==
[2019-08-18 10:57] LABS: APPEARANCE,URINE SLIGHTLY-CLOUDY; BILIRUBIN,URINE NEGATIVE (NEGATIVE); COLOR,URINE YELLOW; GLUCOSE, URINE NEGATIVE (NEGATIVE); KETONES,URINE NEGATIVE (NEGATIVE); LEUKOCYTE ESTERASE,URINE SMALL (NEGATIVE); NITRITE,URINE NEGATIVE (NEGATIVE); PROTEIN,URINE NEGATIVE (NEGATIVE); URINE SPECIFIC GRAVITY 1.018; UROBILINOGEN,URINE NEGATIVE mg/dL (<2.0)
--- NOTE | 2019-08-18 11:22 | Non Stress Test Report ---
Non Stress Test Datetime Report Generated by CPN: 08/18/2019 11:22 DEMOGRAPHIC EGA NST: 34.4 INDICATION Indication for Study (NST) Other: IUP at 34.4; Not in labor VITAL SIGNS Temperature - NST: 98.3 Pulse - NST: 96 RESP - NST: 18 NBPSYS NST: 107 NBPDIA NST: 62 MONITORING Monitor Explained: Monitor Explained; Test Explained; Patient Verbalized Understanding Time on Monitor: 08/18/2019 10:20 Time off Monitor: 08/18/2019 10:50 NST Duration: 30 NST INTERVENTIONS NST Interventions: PO Hydration Physician Notified NST: K. Lima, CNM BABY A: [id number] BABY A Movement : Present Contraction Frequency : x1; Irritability FHR Baseline : 140 Accelerations : 15X15 Decelerations : None Variability : Moderate 6-25bpm NST Review: Meets Criteria for Reactive NST NST Review and Verified By : Bello Faulkner RN NST Results: Reactive NST REPORT Report Trigger: Send Report
[2019-08-18 11:32] LABS: URINE AMPHETAMINES SCREEN NEGATIVE; URINE BARBITURATES SCREEN NEGATIVE; URINE BENZODIAZEPINES SCREEN NEGATIVE; URINE COCAINE SCREEN NEGATIVE; URINE METHADONE SCREEN NEGATIVE; URINE PHENCYCLIDINE SCREEN NEGATIVE
[2019-08-18 11:36] LABS: URINE MARIJUANA (THC) SCREEN UNCONFIRMED POSITIVE
== END 2019-08-18 11:12 | disposition home or self-care (01) ==
LOC: LC 09:58
PROVIDERS: ATTEND Obstetrics & Gynecology Gynecology
DX: O47.03 False labor before 37 completed weeks of gestation, third trimester (principal); Z3A.34 34 weeks gestation of pregnancy
CPT/HCPCS: 59025; 80307; 81001; 84112